=== PATIENT | female | born 1985 | race Caucasian/White ===

== ENCOUNTER 2016-09-19 21:56 | Emergency (ER) | payer OTHER ==
[2016-09-19 23:05] LABS: GLUCOSE CSF 55 MG/DL (45-70); TOTAL PROTEIN, CSF 30.6 MG/DL (15-45)
[2016-09-19 23:45] LABS: CSF APPEARANCE (NOT ORD) CLEAR (CLEAR); CSF BASO 0 % (NO REF RANGE); CSF COLOR (NOT ORD) COLORLESS (COLORLESS); CSF EOS 0 % (0-1); CSF LYMPH (NOT ORD) 90 % (28-96); CSF MONO 10 % (16-56); CSF RBC (NOT ORD) 1 MM3 (NO REFERENCE); CSF SEGS (NOT ORD) 0 % (0-7); CSF WBC (NOT ORD) 13 /uL (0-10); CSF XANTHROCHROMIA NEG (NEG)
[2016-09-19 23:47] LABS: CSF APPEARANCE (NOT ORD) CLEAR (CLEAR); CSF BASO 0 % (NO REF RANGE); CSF COLOR (NOT ORD) COLORLESS (COLORLESS); CSF EOS 0 % (0-1); CSF LYMPH (NOT ORD) 93 % (28-96); CSF MONO 6 % (16-56); CSF RBC (NOT ORD) 0 MM3 (NO REFERENCE); CSF SEGS (NOT ORD) 1 % (0-7); CSF WBC (NOT ORD) 13 /uL (0-10); CSF XANTHROCHROMIA NEG (NEG)
[2016-10-11 10:05] LABS: CSF IGG/ALBUMIN RATIO 0.34 ratio (0.09-0.25); CSF OLIGOCLONAL BANDS Inconclusive (NEG)
== END 2016-09-20 01:20 | disposition home or self-care (01) ==
LOC: ER 21:56
PROVIDERS: Specialist
DX: G93.2 Benign intracranial hypertension (principal); Z88.1 Allergy status to other antibiotic agents
CPT/HCPCS: 62270; 70450; 77003; 82040; 82042; 82784; 82784-59; 82945; 83916; 84157; 87070; 87205; 89051; 96374; 99284; J1200; J1885; J2765